=== PATIENT | female | born 1985 | race Caucasian/White ===

== ENCOUNTER 2018-06-12 14:16 | Emergency (ER) | payer OTHER ==
--- NOTE | 2018-06-12 14:28 | EDPHY ---
H & P Stated Complaint: cp since yesterday Time Seen by Provider: 06/12/18 14:28 HPI/ROS: CHIEF COMPLAINT: Intermittent chest pressure HISTORY OF PRESENT ILLNESS: The patient presents to the ED for evaluation of 6 months of intermittent chest pressure. She describes symptoms which are not precipitated by exertion or worsened with inspiration. The patient has had some increasing symptoms over the past 36 hr. The patient has a very low body mass index presumably from a eating disorder. She was recently seen by her primary care provider who did screening laboratory studies which demonstrated initial hyperkalemia however that was felt to be secondary to hemolysis is a repeat was normal. The patient currently is asymptomatic. She denies any active chest pain or shortness of breath. She denies asymmetric calf pain or swelling. She denies fever, cough or congestion. REVIEW OF SYSTEMS: A comprehensive 10 point review of systems is otherwise negative aside from elements mentioned in the history of present illness. Source: Patient Exam Limitations: No limitations - Personal History LMP (Females 10-55): Over 28 Days Ago Current Tetanus Diphtheria and Acellular Pertussis (TDAP): Yes - Medical/Surgical History Hx Asthma: No Hx Chronic Respiratory Disease: No Hx Diabetes: No Hx Cardiac Disease: No Hx Renal Disease: No Hx Cirrhosis: No Hx Alcoholism: No Hx HIV/AIDS: No Hx Splenectomy or Spleen Trauma: No Other PMH: eating disorder/anxiety - Social History Smoking Status: Never smoked - Physical Exam Exam: General Appearance: Thin female, no acute distress Eyes: Pupils equal and round no pallor or injection ENT, Mouth: Mucous membranes moist Respiratory: There are no retractions, lungs are clear to auscultation Cardiovascular: Regular rate and rhythm Gastrointestinal: Abdomen is soft and nontender, no masses, bowel sounds normal Neurological: A&O, normal motor function, normal sensory exam, normal cranial nerves Skin: Warm and dry, no rashes Musculoskeletal: Neck is supple nontender Extremities: symmetrical, full range of motion Psychiatric: Patient is oriented X 3, there is no agitation Constitutional: Initial Vital Signs Temperature (C) 36.5 C 06/12/18 14:19 Heart Rate 63 06/12/18 14:19 Respiratory Rate 18 06/12/18 14:19 Blood Pressure 108/77 06/12/18 14:19 O2 Sat (%) 100 06/12/18 14:19 O2 Delivery Mode Room Air Allergies/Adverse Reactions: Sulfa (Sulfonamide Antibiotics) Allergy (Verified 06/12/18 14:18) Home Medications: Medication Instructions Recorded NK [No Known Home Meds] 06/12/18 Medical Decision Making - Diagnostics EKG Interpretation: EKG: Complete interpretation has been separately recorded in the [email or web address] archive. Summary impression: Sinus rhythm, rate 53 ED Course/Re-evaluation: I reviewed the patient's outpatient laboratory testing from yesterday. She has no evidence of a significant metabolic derangement. The patient's EKG demonstrates no evidence of ischemia. Point of care troponin test is normal at 0.00 Her point of care testing is also normal. The patient has nothing to suggest pulmonary embolism based upon her symptoms as they have resolved and she has been dealing with this intermittently for the past 6 months. The patient denies any symptoms of gastroesophageal reflux disease. Given her history of likely anorexia I will recommend that she follow up with Cardiology for a complete evaluation. Differential Diagnosis: Differential diagnosis considered includes pericarditis, myocarditis, esophageal spasm, myocardial infarction Departure - Departure Disposition: Home, Routine, Self-Care Clinical Impression: Chest pain Condition: Good Instructions: Chest Pain (ED) Additional Instructions: 1. Based upon the testing done in the Emergency Department today we see no evidence of a heart attack. 2. We are unable to fully exclude coronary artery disease based upon the testing available in the Emergency Department. 3. For this reason, we would like you to be seen by cardiology for consideration of additional testing within the next 3 days. 4. Please contact the charging manipulator you have been referred to schedule this appointment as soon as possible. Their offices are typically open from 8:30am- 5pm M-F. 5. Please return to the Emergency Department immediately for any recurrent chest pain, difficulty breathing or other concerns. Referrals: Tea Campbell MD [Primary Care Provider] - As per Instructions Tarik Tovar MD [Medical Doctor] - As per Instructions
--- NOTE | 2018-06-12 14:41 | CPEKG ---
Test Reason : OPEN Blood Pressure : / mmHG Vent. Rate : 053 BPM Atrial Rate : 052 BPM P-R Int : 162 ms QRS Dur : 114 ms QT Int : 456 ms P-R-T Axes : 078 075 071 degrees QTc Int : 429 ms Sinus rhythm Confirmed by Les Villatoro ([id number]) on 06/12/2018 2:41:03 PM Referred By: Confirmed By:Les Villatoro
[2018-06-12 14:50] VITALS: BP 110/78
== END 2018-06-12 15:15 | disposition home or self-care (01) ==
DX: R07.89 Other chest pain (principal)
CPT/HCPCS: 84484-PO

== ENCOUNTER → 2019-01-18 | Outpatient (CLI) | payer OTHER | LOC: FIMAGING 07:23 | PROVIDERS: ATTEND Family Medicine | DX: E63.9 Nutritional deficiency, unspecified (principal); K14.6 Glossodynia; R10.13 Epigastric pain; T73.0XXA Starvation, initial encounter ==